=== PATIENT | male | born 1950 | race Caucasian/White ===

== ENCOUNTER 2017-10-25 06:35 | Day surgery (SDC) | payer OTHER ==
[~2017-10-25] VITALS: Ht 167.6 cm; Wt 99.9 kg
[~2017-10-25 06:35] MED LIST: ATOR40TA; CEPH500 PO; HYDACE5 PO; KRILL OIL500 MG; LEVSOD125; LOPE2C; NAPR220; Omeprazole20 M1; Pepto-Bismol262 MG; RXHYDACE PO
[2017-10-25] MEDS ORDERED: METF500 PO (07:01)
== END 2017-10-25 08:39 | disposition home or self-care (01) ==
LOC: ORSCSDS 06:35
PROVIDERS: Ophthalmology
PROC: 08RK3JZ Replacement of Left Lens with Synthetic Substitute, Percutaneous Approach (ICD-10-PCS; principal; 2017-10-25 08:00)
DX: H25.11 Age-related nuclear cataract, right eye (principal); K21.9 Gastro-esophageal reflux disease without esophagitis; E03.9 Hypothyroidism, unspecified; E11.9 Type 2 diabetes mellitus without complications; E66.01 Morbid (severe) obesity due to excess calories; Z68.35 Body mass index [BMI] 35.0-35.9, adult; Z79.899 Other long term (current) drug therapy
CPT/HCPCS: 82947; J2250; J3301; J7040; V2632

== ENCOUNTER 2022-07-11 08:29 | Day surgery (SDC) | payer OTHER ==
[~2022-07-11] VITALS: Ht 167.6 cm; Wt 109.2 kg
[~2022-07-11 08:29] MED LIST changes: +METF500 PO
[2022-07-11] MEDS ORDERED: TAMS.4ER (08:47)
[2022-07-11] MEDS ORDERED: GLIM4 (08:48)
== END 2022-07-11 10:46 | disposition home or self-care (01) ==
LOC: ORSCSDS 08:29
PROVIDERS: Internal Medicine Gastroenterology
PROC: 0DBN8ZX Excision of Sigmoid Colon, Via Natural or Artificial Opening Endoscopic, Diagnostic (ICD-10-PCS; principal; 2022-07-11 09:45)
PROC: 0DBK8ZX Excision of Ascending Colon, Via Natural or Artificial Opening Endoscopic, Diagnostic (ICD-10-PCS; principal; 2022-07-11 09:45)
PROC: 0DBM8ZX Excision of Descending Colon, Via Natural or Artificial Opening Endoscopic, Diagnostic (ICD-10-PCS; principal; 2022-07-11 09:45)
DX: Z12.11 Encounter for screening for malignant neoplasm of colon (principal); Z86.010 Personal history of colon polyps; Z80.0 Family history of malignant neoplasm of digestive organs; D12.2 Benign neoplasm of ascending colon; D12.4 Benign neoplasm of descending colon; D12.5 Benign neoplasm of sigmoid colon; K57.30 Diverticulosis of large intestine without perforation or abscess without bleeding; E11.9 Type 2 diabetes mellitus without complications; Z79.899 Other long term (current) drug therapy; Z87.891 Personal history of nicotine dependence
CPT/HCPCS: 82947; 88305; J2704; J7120